=== PATIENT | female | born 1940 | race Two or more races ===

== ENCOUNTER 2022-07-09 05:40 | Day surgery (SDC) | payer OTHER ==
[~2022-07-09] VITALS: Ht 157.5 cm; Wt 54.4 kg
[~2022-07-09 05:40] MED LIST: CRESTOR5 MG PO; GLIMEPIRIDE4 MG; PEPCID40 MG PO; PLAVIX75 MG PO; TOPROL XL25 M1 PO; TOUJEO MAX300 UNIT/1
[2022-07-09] MEDS ORDERED: TYLENOL325 MG PO (09:12)
== END 2022-07-09 13:30 | disposition home or self-care (01) ==
LOC: CIR.AMB 05:40
PROVIDERS: ATTEND Obstetrics & Gynecology Gynecology
DX: N84.0 Polyp of corpus uteri (principal); N87.9 Dysplasia of cervix uteri, unspecified; Z20.822 Contact with and (suspected) exposure to COVID-19; Z91.013 Allergy to seafood; Z88.0 Allergy status to penicillin; Z88.6 Allergy status to analgesic agent; Z88.1 Allergy status to other antibiotic agents; E11.9 Type 2 diabetes mellitus without complications